=== PATIENT | female | born 1995 | race Caucasian/White ===

== ENCOUNTER → 2017-11-20 | Outpatient (CLI) | payer OTHER ==
--- NOTE | 2017-11-28 13:22 | CPEEG ---
[f rep st] ELECTROENCEPHALOGRAM 4-HOUR VIDEO ELECTROENCEPHALOGRAM DATE OF STUDY: 11/20/2017 DATE OF INTERPRETATION: 11/28/2017. DATE OF STUDY: 11/20/2017. INTERPRETATION: This 4-hour video EEG recording is normal. There were no potentially epileptogenic abnormalities present during the awake or sleep recordings. During the video EEG monitoring session, the patient did not have any clinical events. REPORT: This 4-hour video EEG contains 10-11 Hz alpha activity to the posterior head regions. The b ackground activity was normal and symmetric. There was no abnormal activation at rest, during photic stimulation or hyperventilation. The patient became drowsy and fell into sustained sleep during the study. There was no abnormal activation during sleep or during times of arousal. The patient did n ot have any clinical events during the video EEG monitoring. /[id number]/MODL
== END ==
LOC: FCPNEURO 07:53
PROVIDERS: ATTEND Psychiatry & Neurology Neurology
DX: R51 Headache (principal); R48.1 Agnosia

== ENCOUNTER 2017-12-24 17:52 | Emergency (ER) | payer OTHER ==
[2017-12-24 18:15] VITALS: TEMP 98.1
[2017-12-24 18:23] LABS: PLATELET COUNT 266 10^3/uL (150-400)
--- NOTE | 2017-12-24 18:32 | EDPHY ---
H & P Stated Complaint: left flank pain for 4 days. - Personal History LMP (Females 10-55): IUD In Place Current Tetanus Diphtheria and Acellular Pertussis (TDAP): Yes Tetanus Vaccine Date: < 10 - Medical/Surgical History Hx Asthma: No Hx Chronic Respiratory Disease: No Hx Diabetes: No Hx Cardiac Disease: No Hx Renal Disease: No Hx Cirrhosis: No Hx Alcoholism: No Hx HIV/AIDS: No Hx Splenectomy or Spleen Trauma: No Other PMH: cholecystectomy. migraines. - Social History Smoking Status: Never smoked Time Seen by Provider: 12/24/17 18:14 HPI/ROS: CHIEF COMPLAINT: Waxing waning left flank pain x4 days HISTORY OF PRESENT ILLNESS: 22 year old female with remote history of cholecystectomy, complaining of waxing waning sharp stabbing left flank pain radiating to her abdomen for the past 4 days. No dysuria or hematuria. No vaginal discharge. No nausea or vomiting. Bowel movements normal. No fever or chills. No chest pain. REVIEW OF SYSTEMS: A ten point review of systems was performed and is negative with the exception of the items mentioned in the HPI PAST MEDICAL & SURGICAL HISTORY: Remote cholecystectomy history. Patient is followed by a surgeon in [place] for ongoing splenomegaly, abdominal adenopathy for which she had right axillary lymph node biopsy in September 2017 which was negative for malignancy. SOCIAL HISTORY: Nonsmoker PHYSICAL EXAM (Prior to examination, patient consented to physical exam, hands were washed and my usual and customary physical exam procedures followed) 1) GENERAL: Alert and oriented. Appears to be in no acute distress. 2) HEAD: Normocephalic, atraumatic 3) HEENT: Pupils equal, round, reactive to light bilaterally. Sclera anicteric. 4) NECK: Full range of motion, no meningeal signs. 5) LUNGS: Clear auscultation bilaterally, no wheezes, no rhonchi, no retractions. 6) HEART: Regular rate and rhythm, no murmur, no heave, no gallop. 7) ABDOMEN: No guarding, no rebound, no focal tenderness, negative McBurney's, negative Aguilar's, negative Rovsing's, negative peritoneal sign, 8) MUSCULOSKELETAL: Moving all extremities, no focal areas of tenderness, no obvious trauma. No peripheral edema or discoloration. 9) BACK: No CVA tenderness, no midline vertebral tenderness, no fluctuance, no step-off, no obvious trauma, no visual or palpable abnormality. 10) SKIN: No rash, no petechiae. 11) Psychiatric: Patient is oriented X 3, there is no agitation. DIFFERENTIAL DIAGNOSIS: In no particular order including but not limited to nephrolithiasis, pyelonephritis, perinephric abscess (Geoffrey Hawk) Constitutional: Initial Vital Signs Temperature (C) 36.7 C 12/24/17 18:10 Heart Rate 72 12/24/17 18:10 Respiratory Rate 18 12/24/17 18:10 Blood Pressure 125/79 H 12/24/17 18:10 O2 Sat (%) 99 12/24/17 18:10 O2 Delivery Mode Room Air Allergies/Adverse Reactions: latex Allergy (Verified 12/24/17 18:17) Home Medications: Medication Instructions Recorded Deplin-Algal Oil 15 mg Capsule 12/24/17 Docusate Sodium [Colace] 100 mg PO BID #6 cap 12/24/17 LORazepam 12/24/17 Latuda 12/24/17 Topamax 12/24/17 VITAMIN D 12/24/17 Medical Decision Making - Diagnostics Imaging Results: Images reviewed by myself (Geoffrey Hawk) ED Course/Re-evaluation: 6:30 p.m.: Care of patient under supervision of secondary supervising physician Dr Krishna. 7:22 p.m.: Re-evaluation, discussed her imaging studies, re-examined the patient at this time. She appears comfortable, abdomen is soft no guarding or rebound. I had a lengthy discussion with her we discussed her CT imaging findings show no nephrolithiasis, no perinephric stranding or signs of perinephric abscess. She is noted to have multiple intra-abdominal lymph nodes as well as splenomegaly. She states that this has been ongoing issue for her for the past year and she is followed by surgeon in [place] who has discussed splenectomy and has also had lymph node biopsy as recently as September 2017 of her right axilla which was negative for malignancy. I have given her copies of her CT scans and recommend she follow up with her surgeon to discuss this further. At this time I think that acute intra-abdominal surgical pathology such as obstruction, acute appendicitis is less than likely. She is also noted to have a left adnexal mass and has had no complaints of abdominal pain in the lower abdomen, no tenderness on examination. Doubt ovarian torsion. She is noted to have stool and constipation I will discharge her home with medication for such. She feels comfortable with this plan. All questions and concerns addressed by myself. Care of patient under supervision of secondary supervising physician Dr Krishna. (Geoffrey Hawk) Other Provider: The patient was evaluated and managed by the Physician Hot Braider. My co- signature indicates that I have reviewed this chart and I agree with the findings and plan of care as documented. I am the secondary supervising physician. (Sofie Krishna) - Data Points Laboratory Results: Laboratory Results 12/24/17 18:15 12/24/17 18:15 Departure - Departure Disposition: Home, Routine, Self-Care Clinical Impression: Constipation, Left flank pain, Adenopathy Condition: Good Instructions: Constipation (ED), Lymphadenopathy (ED), Flank Pain (ED) Additional Instructions: Seek immediate medical attention if you develop new or worsening symptoms, if you develop fevers, chills, inability to tolerate oral intake or any other symptoms that concerns you. Referrals: Follow-up, with your surgeon in [place] in the next 1 we [Other] - As per Instructions Prescriptions: Docusate Sodium [Colace] 100 mg PO BID #6 cap
[2017-12-24 20:24] VITALS: BP 117/74; PULSE 85; RESP 16; O2SAT 98
== END 2017-12-24 20:22 | disposition home or self-care (01) ==
DX: K59.09 Other constipation (principal); Z90.49 Acquired absence of other specified parts of digestive tract